=== PATIENT | female | born 1955 | race Caucasian/White ===

== ENCOUNTER 2024-02-25 23:22 | Inpatient (IN) | payer OTHER, MEDICAID ==
[~2024-02-25] VITALS: Ht 160 cm; Wt 97.5 kg
[2024-02-25 23:29] VITALS: BP_SYST 117; PULSE 99; RESP 24; TEMP 96.8; O2SAT 95
[2024-02-26] VITALS (8 sets, daily range): BP systolic 91–120; PULSE 77–83; RESP 16–22; TEMP 97–98.4; O2SAT 95–98
[2024-02-26 00:43] LABS: CALCIUM 9.2 mg/dL (8.4-11.0); CREATININE 0.91 mg/dL (0.55-1.30); HEMATOCRIT 40.1 % (36-48); HEMOGLOBIN 13.5 g/dL (12.0-16.0); MEAN CORPUSCULAR HEMOGLOBIN 31 pg (27-31); MEAN CORPUSCULAR HGB CONC 34 % (32-36); MEAN CORPUSCULAR VOLUME 93 fL (79.0-98.0); PLATELET COUNT (AUTO) 236 K/uL (130-430); POTASSIUM 3.6 mmol/L (3.5-5.1); RED BLOOD CELL COUNT(AUTO) 4.32 MIL/uL (4.2-6.2); RED CELL DISTRIBUTION WIDTH 15.9 % (9.0-15.0); WHITE BLOOD COUNT (AUTO) 27.6 K/uL (4.8-10.8)
[2024-02-26] MEDS: fentaNYL CITRATE/PF 100 MCG/2 ML AMP IVP ONE (01:57)
[2024-02-26] MEDS ORDERED: PIPERACILLIN/TAZOBACTAM 3.375 GM/VIAL (ZOSYN) IV ONE (02:05)
[2024-02-26] MEDS: PIPERACILLIN/TAZO 3.375 GM in NS 50 ML IV ONE ×2 (02:11→15:42)
[2024-02-26] MEDS ORDERED: HYDR-3921 PO (02:14)
[2024-02-26] MEDS ORDERED: ALBU2.5V7 INH (02:14)
[2024-02-26] MEDS ORDERED: OMEP20CA15 PO (02:14)
[2024-02-26] MEDS ORDERED: ONDA-8 TL (02:14)
[2024-02-26] MEDS ORDERED: ROFL500T PO (02:14)
[2024-02-26] MEDS ORDERED: ATOR-449 PO (02:14)
[2024-02-26] MEDS ORDERED: PRED5TAB PO (02:14)
[2024-02-26] MEDS ORDERED: POTA8TAB66 PO (02:14)
[2024-02-26] MEDS ORDERED: LOSA-413 PO (02:14)
[2024-02-26] MEDS: D5/0.45 NS 1,000 ML IV SCH (02:38)
[2024-02-26 02:52] LABS: BILIRUBIN,URINE NEGATIVE (NEGATIVE); BLOOD, URINE NEGATIVE (NEGATIVE); CLARITY/URINE CLEAR (CLEAR); COLOR,URINE YELLOW (YELLOW); GLUCOSE,URINE NEGATIVE (NEGATIVE); KETONES,URINE NEGATIVE (NEGATIVE); LEUKOCYTE ESTERASE ,URINE NEGATIVE (NEGATIVE); NITRITE, URINE POSITIVE (NEGATIVE); PROTEIN URINE NEGATIVE (NEGATIVE); UROBILINOGEN,URINE 0.2 (0.2-1.0)
[2024-02-26] MEDS: HYDROmorphone 1 MG/ML INJ. CARTRIDGE IM PRN (02:57)
[2024-02-26] MEDS: ONDANSETRON HCL 4 MG/2 ML VIAL IVP PRN (02:58)
[2024-02-26] MEDS: IPRATROPIUM/ALBUTEROL SULFATE 3 ML AMPUL.NEB (DUONEB) INH ONE (03:07)
[2024-02-26 03:08] LABS: BASOPHILS % (AUTO) 0.1 % (0.0-2.0); LYMPHOCYTES % (AUTO) 3.3 % (20.5-51.5); MONOCYTES % (AUTO) 5.7 % (1.7-9.3); NEUTROPHILS # (AUTO) 25.1 K/uL (1.8-7.7)
[2024-02-26 03:09] LABS: LYMPHOCYTES # (AUTO) 0.9 K/uL (1.0-5.5); MONOCYTES # (AUTO) 1.6 K/uL (0.0-1.0)
[2024-02-26 03:10] LABS: BAND % (MANUAL) 1 % (0-6); LYMPHOCYTES % (MANUAL) 3 % (20-46); MONOCYTES % (MANUAL) 6 % (0-11)
[2024-02-26 03:12] LABS: BASOPHILS % (MANUAL) 2 % (0-2)
[2024-02-26 03:17] LABS: BACTERIA,URINE MANY /HPF (None Seen); RBC,URINE 0-3 /HPF (0-3); WBC,URINE 0-3 /HPF (0-3)
[2024-02-26 03:18] LABS: MUCUS,URINE 2+ /LPF (None Seen)
[2024-02-26] MEDS ORDERED: PIPERACILLIN/TAZOBACTAM 2.25 GM VIAL IV ONE (05:25)
[2024-02-26] MEDS: PIPERACILLIN/TAZOBACTAM 2.25 GM in NS 50 ML IV SCH (06:19)
[2024-02-26] MEDS ORDERED: VANCOMYCIN HCL 1,000 MG in NS 250 ML IV SCH (09:00)
[2024-02-26] MEDS ORDERED: ONDANSETRON 4 MG ODT TAB TL PRN (11:00)
[2024-02-26] MEDS: VANCOMYCIN HCL 1,000 MG in NS 250 ML IV SCH (11:10)
[2024-02-26] MEDS ORDERED: *TPN PER PHARMACY XX PRN (11:15)
[2024-02-26] MEDS ORDERED: DEXTROSE 50% JECT 50 ML DISP.SYRIN IVP PRN (11:15)
[2024-02-26 11:38] LABS: PHOSPHORUS 3.4 mg/dL (2.7-4.5)
[2024-02-26] MEDS: HYDROmorphone 1 MG/ML INJ. CARTRIDGE IVP PRN (12:01)
[2024-02-26] MEDS ORDERED: NACL 0.9% 1,000 ML IV SCH (12:15)
[2024-02-26] MEDS: ALBUTEROL SULFATE 0.083% 2.5 MG/3 ML VIAL.NEB INH PRN (13:35)
[2024-02-26] MEDS ORDERED: ALBUTEROL SULFATE 0.083% 2.5 MG/3 ML VIAL.NEB INH ONE (14:00)
[2024-02-26] MEDS: PANTOPRAZOLE SODIUM 40 MG TAB PO ONE (14:09)
[2024-02-26] MEDS: HYDROCORTISONE SOD SUCC 100 MG/2 ML VIAL IVP ONE (14:10)
[2024-02-26] MEDS: NACL 0.9% 1,000 ML IV ONE (14:14)
[2024-02-26] MEDS ORDERED: PIPERACILLIN/TAZOBACTAM 2.25 GM in NS 50 ML IV ONE (15:00)
[2024-02-26 16:52] LABS: PROTHROMBIN TIME 10.7 SECS (9.5-12.5)
[2024-02-26] MEDS: ALBUTEROL SULFATE 0.083% 2.5 MG/3 ML VIAL.NEB INH SCH (19:30)
[2024-02-26] MEDS: SODIUM CHLORIDE IV SCH (21:00)
[2024-02-26] MEDS: POTASSIUM CHLORIDE IV SCH (21:00)
[2024-02-26] MEDS: TPN PERIPHERAL IV SCH (21:00)
[2024-02-26] MEDS: [UNRECOGNIZED DRUG - OTHER] IV SCH (21:00)
[2024-02-26] MEDS: FAT EMULSIONS 250 ML IV SCH (21:00)
[2024-02-26] MEDS: HYDROCORTISONE SOD SUCC 100 MG/2 ML VIAL IVP SCH (21:24)
[2024-02-26] MEDS ORDERED: LINEZOLID 300 ML IV ONE (21:31)
[2024-02-26] MEDS ORDERED: FLUCONAZOLE 200 mg/ NS 100 ML IV ONE (21:32)
[2024-02-26] MEDS: FLUCONAZOLE 200 mg/ NS 100 ML IV SCH (21:43)
[2024-02-26] MEDS: LINEZOLID 300 ML IV SCH (21:44)
[2024-02-26] MEDS ORDERED: ALBUTEROL SULFATE 0.083% 2.5 MG/3 ML VIAL.NEB INH SCH (22:00)
[2024-02-26] MEDS ORDERED: PIPERACILLIN/TAZOBACTAM 2.25 GM in NS 50 ML IV SCH (22:00)
[2024-02-26] MEDS: PIPERACILLIN/TAZO 3.375 GM in NS 50 ML IV SCH (22:47)
[2024-02-27] VITALS (10 sets, daily range): BP systolic 132–155; PULSE 75–86; RESP 16–20; TEMP 96.1–99.6; O2SAT 91–97
[2024-02-27 06:12] LABS: BASOPHILS % (AUTO) 0.2 % (0.0-2.0); HEMATOCRIT 35.7 % (36-48); HEMOGLOBIN 11.7 g/dL (12.0-16.0); LYMPHOCYTES # (AUTO) 0.9 K/uL (1.0-5.5); LYMPHOCYTES % (AUTO) 3.8 % (20.5-51.5); MEAN CORPUSCULAR HEMOGLOBIN 31 pg (27-31); MEAN CORPUSCULAR HGB CONC 33 % (32-36); MEAN CORPUSCULAR VOLUME 93 fL (79.0-98.0); MONOCYTES # (AUTO) 1.1 K/uL (0.0-1.0); MONOCYTES % (AUTO) 4.6 % (1.7-9.3); PLATELET COUNT (AUTO) 211 K/uL (130-430); RED BLOOD CELL COUNT(AUTO) 3.83 MIL/uL (4.2-6.2); RED CELL DISTRIBUTION WIDTH 15.4 % (9.0-15.0); WHITE BLOOD COUNT (AUTO) 24.1 K/uL (4.8-10.8)
[2024-02-27 06:22] LABS: ALBUMIN 2.5 g/dL (3.4-4.8); CALCIUM 8.9 mg/dL (8.4-11.0); CREATININE 0.76 mg/dL (0.55-1.30); PHOSPHORUS 3.3 mg/dL (2.7-4.5); POTASSIUM 3.9 mmol/L (3.5-5.1); TOTAL BILIRUBIN 0.7 mg/dL (0.0-1.0); TOTAL PROTEIN, SERUM 6.1 g/dL (6.4-8.3)
[2024-02-27 07:33] LABS: NEUTROPHILS % (AUTO) 91.4 % (40.0-70.0)
[2024-02-27] MEDS ORDERED: ATORVASTATIN 10 MG TABLET PO SCH (09:00)
[2024-02-27] MEDS ORDERED: POTASSIUM CHLORIDE 8 MEQ TABLET.ER PO SCH (09:00)
[2024-02-27] MEDS ORDERED: LOSARTAN POTASSIUM 50 MG TABLET (COZAAR) PO SCH (09:00)
[2024-02-27] MEDS ORDERED: PANTOPRAZOLE SODIUM 40 MG TAB PO SCH (09:00)
[2024-02-27] MEDS: PANTOPRAZOLE SODIUM 40 MG/VIAL (PROTONIX) IVP SCH (11:12)
[2024-02-27] MEDS: ONDANSETRON HCL 4 MG/2 ML VIAL IVP PRN (15:22)
[2024-02-27] MEDS: FAT EMULSIONS 250 ML IV SCH (20:41)
[2024-02-27] MEDS: SODIUM CHLORIDE IV SCH (20:46)
[2024-02-27] MEDS: TPN CENTRAL IV SCH (20:46)
[2024-02-27] MEDS: POTASSIUM CHLORIDE IV SCH (20:46)
[2024-02-27] MEDS: [UNRECOGNIZED DRUG - OTHER] IV SCH (20:46)
[2024-02-27] MEDS: K PHOS IV SCH (20:46)
[2024-02-28] VITALS (7 sets, daily range): BP systolic 128–160; PULSE 61–78; RESP 16–28; TEMP 95.8–97.7; O2SAT 93–96
[2024-02-28] MEDS: MAG-AL HYDROX/SIMETH 30 ML UDC PO ONE (00:50)
[2024-02-28 06:40] LABS: ALBUMIN 2.3 g/dL (3.4-4.8); CREATININE 0.79 mg/dL (0.55-1.30); POTASSIUM 3.6 mmol/L (3.5-5.1); TOTAL BILIRUBIN 0.4 mg/dL (0.0-1.0); TOTAL PROTEIN, SERUM 6.1 g/dL (6.4-8.3)
[2024-02-28] MEDS: POTASSIUM CHLORIDE IV SCH (22:09)
[2024-02-28] MEDS: [UNRECOGNIZED DRUG - OTHER] IV SCH (22:09)
[2024-02-28] MEDS: SODIUM CHLORIDE IV SCH (22:09)
[2024-02-28] MEDS: TPN CENTRAL IV SCH (22:09)
[2024-02-29] VITALS (8 sets, daily range): BP systolic 146–158; PULSE 69–80; RESP 18–28; TEMP 96.9–98.1; O2SAT 92–98
[2024-02-29 05:15] LABS: BASOPHILS % (AUTO) 0.1 % (0.0-2.0); EOSINOPHILS # (AUTO) 0.1 K/uL (0.0-0.4); EOSINOPHILS % (AUTO) 0.4 % (0.0-4.0); HEMATOCRIT 35.3 % (36-48); HEMOGLOBIN 11.5 g/dL (12.0-16.0); LYMPHOCYTES # (AUTO) 0.6 K/uL (1.0-5.5); LYMPHOCYTES % (AUTO) 3.2 % (20.5-51.5); MEAN CORPUSCULAR HEMOGLOBIN 30 pg (27-31); MEAN CORPUSCULAR HGB CONC 32 % (32-36); MEAN CORPUSCULAR VOLUME 94 fL (79.0-98.0); MONOCYTES # (AUTO) 0.9 K/uL (0.0-1.0); MONOCYTES % (AUTO) 4.7 % (1.7-9.3); NEUTROPHILS % (AUTO) 91.6 % (40.0-70.0); PLATELET COUNT (AUTO) 239 K/uL (130-430); RED BLOOD CELL COUNT(AUTO) 3.77 MIL/uL (4.2-6.2); RED CELL DISTRIBUTION WIDTH 15.2 % (9.0-15.0); WHITE BLOOD COUNT (AUTO) 18.6 K/uL (4.8-10.8)
[2024-02-29 05:24] LABS: ALBUMIN 2.2 g/dL (3.4-4.8); CREATININE 0.73 mg/dL (0.55-1.30); PHOSPHORUS 2.9 mg/dL (2.7-4.5); POTASSIUM 3.7 mmol/L (3.5-5.1); TOTAL BILIRUBIN 0.3 mg/dL (0.0-1.0)
[2024-02-29] MEDS: INSULIN REGULAR, HUMAN 100 UNITS/ML, 3 ML VIAL (humuLIN R) SUBCUT PRN (10:25)
[2024-02-29] MEDS: POTASSIUM CHLORIDE IV SCH (20:45)
[2024-02-29] MEDS: [UNRECOGNIZED DRUG - OTHER] IV SCH (20:45)
[2024-02-29] MEDS: TPN CENTRAL IV SCH (20:45)
[2024-02-29] MEDS: SODIUM CHLORIDE IV SCH (20:45)
[2024-03-01] VITALS (9 sets, daily range): BP systolic 124–150; PULSE 72–81; RESP 16–20; TEMP 97.4–98.3; O2SAT 90–98
[2024-03-01 06:29] LABS: BASOPHILS % (AUTO) 0.1 % (0.0-2.0); EOSINOPHILS % (AUTO) 0.1 % (0.0-4.0); HEMATOCRIT 35.7 % (36-48); HEMOGLOBIN 11.7 g/dL (12.0-16.0); LYMPHOCYTES # (AUTO) 0.9 K/uL (1.0-5.5); LYMPHOCYTES % (AUTO) 6.6 % (20.5-51.5); MEAN CORPUSCULAR HEMOGLOBIN 31 pg (27-31); MEAN CORPUSCULAR HGB CONC 33 % (32-36); MEAN CORPUSCULAR VOLUME 93 fL (79.0-98.0); MONOCYTES # (AUTO) 0.8 K/uL (0.0-1.0); MONOCYTES % (AUTO) 5.6 % (1.7-9.3); NEUTROPHILS # (AUTO) 11.7 K/uL (1.8-7.7); NEUTROPHILS % (AUTO) 87.6 % (40.0-70.0); PLATELET COUNT (AUTO) 245 K/uL (130-430); RED BLOOD CELL COUNT(AUTO) 3.84 MIL/uL (4.2-6.2); RED CELL DISTRIBUTION WIDTH 15.3 % (9.0-15.0); WHITE BLOOD COUNT (AUTO) 13.4 K/uL (4.8-10.8)
[2024-03-01 06:53] LABS: ALBUMIN 2.4 g/dL (3.4-4.8); CREATININE 0.77 mg/dL (0.55-1.30); PHOSPHORUS 3.5 mg/dL (2.7-4.5); POTASSIUM 3.9 mmol/L (3.5-5.1); TOTAL BILIRUBIN 0.4 mg/dL (0.0-1.0); TOTAL PROTEIN, SERUM 6.2 g/dL (6.4-8.3)
[2024-03-01] MEDS: SODIUM CHLORIDE IV SCH (20:50)
[2024-03-01] MEDS: [UNRECOGNIZED DRUG - OTHER] IV SCH (20:50)
[2024-03-01] MEDS: POTASSIUM CHLORIDE IV SCH (20:50)
[2024-03-01] MEDS: TPN CENTRAL IV SCH (20:50)
[2024-03-01] MEDS: NYSTATIN 15 GM TOPICAL POWDER TP SCH (21:00)
[2024-03-02] VITALS (7 sets, daily range): BP systolic 119–127; PULSE 68–89; RESP 15–20; TEMP 96.7–97.9; O2SAT 92–95
[2024-03-02 07:54] LABS: BASOPHILS % (AUTO) 0.2 % (0.0-2.0); EOSINOPHILS % (AUTO) 0.2 % (0.0-4.0); HEMATOCRIT 35.1 % (36-48); HEMOGLOBIN 11.4 g/dL (12.0-16.0); LYMPHOCYTES % (AUTO) 6.3 % (20.5-51.5); MEAN CORPUSCULAR HEMOGLOBIN 30 pg (27-31); MEAN CORPUSCULAR HGB CONC 33 % (32-36); MEAN CORPUSCULAR VOLUME 93 fL (79.0-98.0); MONOCYTES % (AUTO) 6.8 % (1.7-9.3); NEUTROPHILS % (AUTO) 86.5 % (40.0-70.0); PLATELET COUNT (AUTO) 232 K/uL (130-430); RED BLOOD CELL COUNT(AUTO) 3.77 MIL/uL (4.2-6.2); RED CELL DISTRIBUTION WIDTH 15.2 % (9.0-15.0)
[2024-03-02 08:17] LABS: ALBUMIN 2.4 g/dL (3.4-4.8); CALCIUM 8.7 mg/dL (8.4-11.0); CREATININE 0.66 mg/dL (0.55-1.30); PHOSPHORUS 4.1 mg/dL (2.7-4.5); POTASSIUM 3.7 mmol/L (3.5-5.1); TOTAL BILIRUBIN 0.4 mg/dL (0.0-1.0); TOTAL PROTEIN, SERUM 5.9 g/dL (6.4-8.3)
[2024-03-02] MEDS: HYDROcodone/ACETAMIN 7.5-325 MG TAB PO PRN (13:48)
[2024-03-02] MEDS: POTASSIUM CHLORIDE IV SCH (20:48)
[2024-03-02] MEDS: SODIUM CHLORIDE IV SCH (20:48)
[2024-03-02] MEDS: [UNRECOGNIZED DRUG - OTHER] IV SCH (20:48)
[2024-03-02] MEDS: TPN CENTRAL IV SCH (20:48)
[2024-03-03] VITALS (11 sets, daily range): BP systolic 120–135; PULSE 70–81; RESP 16–20; TEMP 97.2–99; O2SAT 92–96
[2024-03-03 07:18] LABS: HEMATOCRIT 35.5 % (36-48); HEMOGLOBIN 11.4 g/dL (12.0-16.0); MEAN CORPUSCULAR HEMOGLOBIN 30 pg (27-31); MEAN CORPUSCULAR HGB CONC 32 % (32-36); MEAN CORPUSCULAR VOLUME 94 fL (79.0-98.0); PLATELET COUNT (AUTO) 260 K/uL (130-430); RED BLOOD CELL COUNT(AUTO) 3.77 MIL/uL (4.2-6.2); RED CELL DISTRIBUTION WIDTH 15.9 % (9.0-15.0); WHITE BLOOD COUNT (AUTO) 23.2 K/uL (4.8-10.8)
[2024-03-03 07:50] LABS: ALBUMIN 2.3 g/dL (3.4-4.8); CALCIUM 8.9 mg/dL (8.4-11.0); CREATININE 0.65 mg/dL (0.55-1.30); PHOSPHORUS 3.4 mg/dL (2.7-4.5); POTASSIUM 3.9 mmol/L (3.5-5.1); TOTAL BILIRUBIN 0.4 mg/dL (0.0-1.0); TOTAL PROTEIN, SERUM 5.9 g/dL (6.4-8.3)
[2024-03-03 10:35] LABS: EOSINOPHILS % (MANUAL) 0 % (0-7); LYMPHOCYTES % (MANUAL) 10 % (20-46); MONOCYTES % (MANUAL) 10 % (0-11)
[2024-03-03 10:36] LABS: ANISOCYTOSIS 1+; BASOPHILS % (MANUAL) 0 % (0-2); PLATELET ESTIMATE ADEQUATE (ADEQUATE)
[2024-03-03] MEDS: SODIUM CHLORIDE IV SCH (20:22)
[2024-03-03] MEDS: [UNRECOGNIZED DRUG - OTHER] IV SCH (20:22)
[2024-03-03] MEDS: TPN PERIPHERAL IV SCH (20:22)
[2024-03-03] MEDS: POTASSIUM CHLORIDE IV SCH (20:22)
[2024-03-04] VITALS (9 sets, daily range): BP systolic 120–132; PULSE 79–106; RESP 16–22; TEMP 97–98; O2SAT 90–96
[2024-03-04 09:08] LABS: BASOPHILS % (AUTO) 0.1 % (0.0-2.0); EOSINOPHILS % (AUTO) 0.1 % (0.0-4.0); HEMATOCRIT 37.2 % (36-48); LYMPHOCYTES # (AUTO) 1.3 K/uL (1.0-5.5); MEAN CORPUSCULAR HEMOGLOBIN 30 pg (27-31); MEAN CORPUSCULAR HGB CONC 32 % (32-36); MEAN CORPUSCULAR VOLUME 94 fL (79.0-98.0); MONOCYTES # (AUTO) 1.1 K/uL (0.0-1.0); MONOCYTES % (AUTO) 5.4 % (1.7-9.3); NEUTROPHILS # (AUTO) 18.4 K/uL (1.8-7.7); NEUTROPHILS % (AUTO) 88.4 % (40.0-70.0); PLATELET COUNT (AUTO) 246 K/uL (130-430); RED BLOOD CELL COUNT(AUTO) 3.96 MIL/uL (4.2-6.2); RED CELL DISTRIBUTION WIDTH 15.6 % (9.0-15.0); WHITE BLOOD COUNT (AUTO) 20.9 K/uL (4.8-10.8)
[2024-03-04 09:16] LABS: ALBUMIN 2.4 g/dL (3.4-4.8); CREATININE 0.68 mg/dL (0.55-1.30); PHOSPHORUS 2.9 mg/dL (2.7-4.5); POTASSIUM 3.8 mmol/L (3.5-5.1); TOTAL BILIRUBIN 0.5 mg/dL (0.0-1.0); TOTAL PROTEIN, SERUM 6.1 g/dL (6.4-8.3)
[2024-03-04] MEDS: ALBUTEROL SULFATE 0.083% 2.5 MG/3 ML VIAL.NEB INH ONE (12:27)
[2024-03-04] MEDS: MEROPENEM 1 GM in NS 100 ML IV SCH (14:23)
[2024-03-04 18:31] LABS: BASOPHILS # (AUTO) 0.1 K/uL (0.0-0.2); BASOPHILS % (AUTO) 0.4 % (0.0-2.0); EOSINOPHILS # (AUTO) 0.1 K/uL (0.0-0.4); EOSINOPHILS % (AUTO) 0.2 % (0.0-4.0); HEMATOCRIT 36.8 % (36-48); HEMOGLOBIN 12.3 g/dL (12.0-16.0); LYMPHOCYTES # (AUTO) 1.5 K/uL (1.0-5.5); LYMPHOCYTES % (AUTO) 6.4 % (20.5-51.5); MEAN CORPUSCULAR HEMOGLOBIN 31 pg (27-31); MEAN CORPUSCULAR HGB CONC 33 % (32-36); MEAN CORPUSCULAR VOLUME 92 fL (79.0-98.0); MONOCYTES # (AUTO) 1.5 K/uL (0.0-1.0); MONOCYTES % (AUTO) 6.3 % (1.7-9.3); NEUTROPHILS # (AUTO) 20.8 K/uL (1.8-7.7); NEUTROPHILS % (AUTO) 86.7 % (40.0-70.0); PLATELET COUNT (AUTO) 252 K/uL (130-430); RED BLOOD CELL COUNT(AUTO) 3.99 MIL/uL (4.2-6.2); RED CELL DISTRIBUTION WIDTH 15.7 % (9.0-15.0)
[2024-03-04] MEDS ORDERED: FLUCONAZOLE 200 mg/ NS 100 ML IV SCH (20:00)
[2024-03-04] MEDS: FLUCONAZOLE IN NACL,ISO-OSM 200 ML IV SCH (21:51)
[2024-03-04] MEDS: SODIUM CHLORIDE IV SCH (21:52)
[2024-03-04] MEDS: POTASSIUM CHLORIDE IV SCH (21:52)
[2024-03-04] MEDS: [UNRECOGNIZED DRUG - OTHER] IV SCH (21:52)
[2024-03-04] MEDS: TPN PERIPHERAL IV SCH (21:52)
[2024-03-05] VITALS (10 sets, daily range): BP systolic 115–132; PULSE 78–105; RESP 16–20; TEMP 97.4–98.2; O2SAT 92–98
[2024-03-05 06:18] LABS: BASOPHILS % (AUTO) 0.2 % (0.0-2.0); EOSINOPHILS # (AUTO) 0.1 K/uL (0.0-0.4); EOSINOPHILS % (AUTO) 0.6 % (0.0-4.0); HEMOGLOBIN 11.9 g/dL (12.0-16.0); LYMPHOCYTES # (AUTO) 1.3 K/uL (1.0-5.5); MEAN CORPUSCULAR HEMOGLOBIN 31 pg (27-31); MEAN CORPUSCULAR HGB CONC 33 % (32-36); MEAN CORPUSCULAR VOLUME 92 fL (79.0-98.0); MONOCYTES # (AUTO) 1.5 K/uL (0.0-1.0); MONOCYTES % (AUTO) 6.8 % (1.7-9.3); NEUTROPHILS # (AUTO) 18.9 K/uL (1.8-7.7); PLATELET COUNT (AUTO) 257 K/uL (130-430); RED BLOOD CELL COUNT(AUTO) 3.89 MIL/uL (4.2-6.2); RED CELL DISTRIBUTION WIDTH 15.4 % (9.0-15.0); WHITE BLOOD COUNT (AUTO) 21.9 K/uL (4.8-10.8)
[2024-03-05 06:55] LABS: ALBUMIN 2.2 g/dL (3.4-4.8); CALCIUM 8.7 mg/dL (8.4-11.0); CREATININE 0.67 mg/dL (0.55-1.30); PHOSPHORUS 3.2 mg/dL (2.7-4.5); TOTAL BILIRUBIN 0.4 mg/dL (0.0-1.0); TOTAL PROTEIN, SERUM 5.9 g/dL (6.4-8.3)
[2024-03-05 07:11] LABS: NEUTROPHILS % (AUTO) 86.4 % (40.0-70.0)
[2024-03-05] MEDS ORDERED: PANTOPRAZOLE SODIUM 40 MG/VIAL (PROTONIX) IVP SCH (14:00)
[2024-03-05] MEDS: PANTOPRAZOLE SODIUM 40 MG/VIAL (PROTONIX) IVP SCH (17:00)
[2024-03-05] MEDS ORDERED: POTASSIUM CHLORIDE IV SCH (21:00)
[2024-03-05] MEDS ORDERED: SODIUM CHLORIDE IV SCH (21:00)
[2024-03-05] MEDS ORDERED: [UNRECOGNIZED DRUG - OTHER] IV SCH (21:00)
[2024-03-05] MEDS ORDERED: TPN PERIPHERAL IV SCH (21:00)
[2024-03-05] MEDS: SODIUM CHLORIDE IV SCH (21:14)
[2024-03-05] MEDS: TPN CENTRAL IV SCH (21:14)
[2024-03-05] MEDS: [UNRECOGNIZED DRUG - OTHER] IV SCH (21:14)
[2024-03-05] MEDS: POTASSIUM CHLORIDE IV SCH (21:14)
[2024-03-06] VITALS (11 sets, daily range): BP systolic 111–129; PULSE 72–88; RESP 16–19; TEMP 96.3–98.3; O2SAT 93–99
[2024-03-06 06:43] LABS: BASOPHILS % (AUTO) 0.2 % (0.0-2.0); EOSINOPHILS # (AUTO) 0.3 K/uL (0.0-0.4); EOSINOPHILS % (AUTO) 1.3 % (0.0-4.0); HEMATOCRIT 34.9 % (36-48); HEMOGLOBIN 11.2 g/dL (12.0-16.0); LYMPHOCYTES # (AUTO) 1.1 K/uL (1.0-5.5); LYMPHOCYTES % (AUTO) 5.4 % (20.5-51.5); MEAN CORPUSCULAR HEMOGLOBIN 30 pg (27-31); MEAN CORPUSCULAR HGB CONC 32 % (32-36); MEAN CORPUSCULAR VOLUME 93 fL (79.0-98.0); MONOCYTES % (AUTO) 4.9 % (1.7-9.3); NEUTROPHILS # (AUTO) 17.5 K/uL (1.8-7.7); NEUTROPHILS % (AUTO) 88.2 % (40.0-70.0); PLATELET COUNT (AUTO) 264 K/uL (130-430); RED BLOOD CELL COUNT(AUTO) 3.76 MIL/uL (4.2-6.2); RED CELL DISTRIBUTION WIDTH 15.6 % (9.0-15.0); WHITE BLOOD COUNT (AUTO) 19.9 K/uL (4.8-10.8)
[2024-03-06 07:01] LABS: ALBUMIN 2.1 g/dL (3.4-4.8); CALCIUM 8.8 mg/dL (8.4-11.0); CREATININE 0.74 mg/dL (0.55-1.30); PHOSPHORUS 2.9 mg/dL (2.7-4.5); POTASSIUM 4.3 mmol/L (3.5-5.1); TOTAL BILIRUBIN 0.2 mg/dL (0.0-1.0)
[2024-03-06] MEDS: POTASSIUM CHLORIDE IV SCH (21:08)
[2024-03-06] MEDS: TPN CENTRAL IV SCH (21:08)
[2024-03-06] MEDS: SODIUM CHLORIDE IV SCH (21:08)
[2024-03-06] MEDS: [UNRECOGNIZED DRUG - OTHER] IV SCH (21:08)
[2024-03-06] MEDS ORDERED: FLUCONAZOLE 200 mg/ NS 100 ML IV ONE (22:11)
[2024-03-07] VITALS (11 sets, daily range): BP systolic 125–173; PULSE 62–81; RESP 17–20; TEMP 97.3–98.4; O2SAT 91–100
[2024-03-07 06:51] LABS: BASOPHILS % (AUTO) 0.3 % (0.0-2.0); EOSINOPHILS # (AUTO) 0.2 K/uL (0.0-0.4); EOSINOPHILS % (AUTO) 1.1 % (0.0-4.0); HEMATOCRIT 34.9 % (36-48); HEMOGLOBIN 11.2 g/dL (12.0-16.0); LYMPHOCYTES # (AUTO) 1.1 K/uL (1.0-5.5); LYMPHOCYTES % (AUTO) 6.5 % (20.5-51.5); MEAN CORPUSCULAR HEMOGLOBIN 30 pg (27-31); MEAN CORPUSCULAR HGB CONC 32 % (32-36); MEAN CORPUSCULAR VOLUME 93 fL (79.0-98.0); MONOCYTES # (AUTO) 0.8 K/uL (0.0-1.0); MONOCYTES % (AUTO) 4.4 % (1.7-9.3); NEUTROPHILS # (AUTO) 15.5 K/uL (1.8-7.7); NEUTROPHILS % (AUTO) 87.7 % (40.0-70.0); PLATELET COUNT (AUTO) 292 K/uL (130-430); RED BLOOD CELL COUNT(AUTO) 3.76 MIL/uL (4.2-6.2); RED CELL DISTRIBUTION WIDTH 15.4 % (9.0-15.0); WHITE BLOOD COUNT (AUTO) 17.6 K/uL (4.8-10.8)
[2024-03-07 07:53] LABS: ALBUMIN 2.1 g/dL (3.4-4.8); CALCIUM 8.9 mg/dL (8.4-11.0); CREATININE 0.61 mg/dL (0.55-1.30); PHOSPHORUS 3.2 mg/dL (2.7-4.5); POTASSIUM 4.3 mmol/L (3.5-5.1); TOTAL BILIRUBIN 0.2 mg/dL (0.0-1.0); TOTAL PROTEIN, SERUM 5.9 g/dL (6.4-8.3)
[2024-03-07 12:23] LABS: BASOPHILS # (AUTO) 0.1 K/uL (0.0-0.2); BASOPHILS % (AUTO) 0.3 % (0.0-2.0); EOSINOPHILS # (AUTO) 0.2 K/uL (0.0-0.4); EOSINOPHILS % (AUTO) 0.8 % (0.0-4.0); HEMATOCRIT 35.6 % (36-48); HEMOGLOBIN 11.6 g/dL (12.0-16.0); LYMPHOCYTES # (AUTO) 0.9 K/uL (1.0-5.5); LYMPHOCYTES % (AUTO) 4.6 % (20.5-51.5); MEAN CORPUSCULAR HEMOGLOBIN 31 pg (27-31); MEAN CORPUSCULAR HGB CONC 33 % (32-36); MEAN CORPUSCULAR VOLUME 94 fL (79.0-98.0); MONOCYTES # (AUTO) 0.7 K/uL (0.0-1.0); MONOCYTES % (AUTO) 3.6 % (1.7-9.3); NEUTROPHILS # (AUTO) 17.8 K/uL (1.8-7.7); NEUTROPHILS % (AUTO) 90.7 % (40.0-70.0); PLATELET COUNT (AUTO) 302 K/uL (130-430); RED BLOOD CELL COUNT(AUTO) 3.78 MIL/uL (4.2-6.2); RED CELL DISTRIBUTION WIDTH 15.5 % (9.0-15.0); WHITE BLOOD COUNT (AUTO) 19.7 K/uL (4.8-10.8)
[2024-03-07] MEDS: [UNRECOGNIZED DRUG - OTHER] IV SCH (22:14)
[2024-03-07] MEDS: SODIUM CHLORIDE IV SCH (22:14)
[2024-03-07] MEDS: POTASSIUM CHLORIDE IV SCH (22:14)
[2024-03-07] MEDS: TPN CENTRAL IV SCH (22:14)
[2024-03-08] VITALS (10 sets, daily range): BP systolic 111–140; PULSE 76–86; RESP 18; TEMP 96.9–97.8; O2SAT 93–97
[2024-03-08 07:16] LABS: BASOPHILS % (AUTO) 0.1 % (0.0-2.0); EOSINOPHILS # (AUTO) 0.2 K/uL (0.0-0.4); EOSINOPHILS % (AUTO) 1.3 % (0.0-4.0); HEMATOCRIT 34.4 % (36-48); HEMOGLOBIN 11.3 g/dL (12.0-16.0); LYMPHOCYTES # (AUTO) 1.1 K/uL (1.0-5.5); LYMPHOCYTES % (AUTO) 5.6 % (20.5-51.5); MEAN CORPUSCULAR HEMOGLOBIN 30 pg (27-31); MEAN CORPUSCULAR HGB CONC 33 % (32-36); MEAN CORPUSCULAR VOLUME 92 fL (79.0-98.0); MONOCYTES % (AUTO) 5.1 % (1.7-9.3); NEUTROPHILS # (AUTO) 16.7 K/uL (1.8-7.7); NEUTROPHILS % (AUTO) 87.9 % (40.0-70.0); PLATELET COUNT (AUTO) 302 K/uL (130-430); RED BLOOD CELL COUNT(AUTO) 3.73 MIL/uL (4.2-6.2); RED CELL DISTRIBUTION WIDTH 15.4 % (9.0-15.0); WHITE BLOOD COUNT (AUTO) 19.1 K/uL (4.8-10.8)
[2024-03-08 07:48] LABS: ALBUMIN 2.2 g/dL (3.4-4.8); CALCIUM 8.8 mg/dL (8.4-11.0); CREATININE 0.62 mg/dL (0.55-1.30); PHOSPHORUS 3.3 mg/dL (2.7-4.5); POTASSIUM 4.1 mmol/L (3.5-5.1); TOTAL BILIRUBIN 0.3 mg/dL (0.0-1.0); TOTAL PROTEIN, SERUM 5.8 g/dL (6.4-8.3)
[2024-03-08] MEDS: POTASSIUM CHLORIDE IV SCH (22:03)
[2024-03-08] MEDS: TPN CENTRAL IV SCH (22:03)
[2024-03-08] MEDS: SODIUM CHLORIDE IV SCH (22:03)
[2024-03-08] MEDS: [UNRECOGNIZED DRUG - OTHER] IV SCH (22:03)
[2024-03-09] VITALS (10 sets, daily range): BP systolic 112–129; PULSE 74–82; RESP 16–20; TEMP 96.1–98.6; O2SAT 90–98
[2024-03-09 06:43] LABS: BASOPHILS # (AUTO) 0.1 K/uL (0.0-0.2); BASOPHILS % (AUTO) 0.3 % (0.0-2.0); EOSINOPHILS # (AUTO) 0.1 K/uL (0.0-0.4); EOSINOPHILS % (AUTO) 0.5 % (0.0-4.0); HEMATOCRIT 36.3 % (36-48); HEMOGLOBIN 11.7 g/dL (12.0-16.0); LYMPHOCYTES # (AUTO) 1.1 K/uL (1.0-5.5); LYMPHOCYTES % (AUTO) 5.3 % (20.5-51.5); MEAN CORPUSCULAR HEMOGLOBIN 30 pg (27-31); MEAN CORPUSCULAR HGB CONC 32 % (32-36); MEAN CORPUSCULAR VOLUME 93 fL (79.0-98.0); MONOCYTES % (AUTO) 4.9 % (1.7-9.3); NEUTROPHILS # (AUTO) 18.4 K/uL (1.8-7.7); PLATELET COUNT (AUTO) 317 K/uL (130-430); RED BLOOD CELL COUNT(AUTO) 3.93 MIL/uL (4.2-6.2); RED CELL DISTRIBUTION WIDTH 15.7 % (9.0-15.0); WHITE BLOOD COUNT (AUTO) 20.7 K/uL (4.8-10.8)
[2024-03-09 07:44] LABS: ALBUMIN 2.3 g/dL (3.4-4.8); CALCIUM 8.9 mg/dL (8.4-11.0); CREATININE 0.7 mg/dL (0.55-1.30); PHOSPHORUS 3.2 mg/dL (2.7-4.5); POTASSIUM 4.3 mmol/L (3.5-5.1); TOTAL BILIRUBIN 0.4 mg/dL (0.0-1.0); TOTAL PROTEIN, SERUM 6.1 g/dL (6.4-8.3)
[2024-03-09 14:49] LABS: BASOPHILS % (AUTO) 0.2 % (0.0-2.0); EOSINOPHILS % (AUTO) 0.2 % (0.0-4.0); HEMATOCRIT 35.8 % (36-48); HEMOGLOBIN 11.8 g/dL (12.0-16.0); LYMPHOCYTES # (AUTO) 0.7 K/uL (1.0-5.5); LYMPHOCYTES % (AUTO) 3.5 % (20.5-51.5); MEAN CORPUSCULAR HEMOGLOBIN 31 pg (27-31); MEAN CORPUSCULAR HGB CONC 33 % (32-36); MEAN CORPUSCULAR VOLUME 92 fL (79.0-98.0); MONOCYTES # (AUTO) 0.8 K/uL (0.0-1.0); MONOCYTES % (AUTO) 3.7 % (1.7-9.3); NEUTROPHILS # (AUTO) 18.9 K/uL (1.8-7.7); NEUTROPHILS % (AUTO) 92.4 % (40.0-70.0); PLATELET COUNT (AUTO) 324 K/uL (130-430); RED BLOOD CELL COUNT(AUTO) 3.89 MIL/uL (4.2-6.2); RED CELL DISTRIBUTION WIDTH 15.5 % (9.0-15.0); WHITE BLOOD COUNT (AUTO) 20.5 K/uL (4.8-10.8)
[2024-03-09] MEDS: FLUCONAZOLE 200 mg/ NS 200 ML IV SCH (23:09)
[2024-03-10] VITALS (8 sets, daily range): BP systolic 125–128; PULSE 71–99; RESP 16–18; TEMP 96.9–97.7; O2SAT 91–99
[2024-03-10 08:04] LABS: ALBUMIN 2.2 g/dL (3.4-4.8); CALCIUM 8.6 mg/dL (8.4-11.0); CREATININE 0.55 mg/dL (0.55-1.30); TOTAL BILIRUBIN 0.3 mg/dL (0.0-1.0); TOTAL PROTEIN, SERUM 5.8 g/dL (6.4-8.3)
[2024-03-10 08:48] LABS: BASOPHILS % (AUTO) 0.3 % (0.0-2.0); EOSINOPHILS # (AUTO) 0.1 K/uL (0.0-0.4); LYMPHOCYTES # (AUTO) 0.7 K/uL (1.0-5.5); MEAN CORPUSCULAR HEMOGLOBIN 30 pg (27-31)
[2024-03-10 08:51] LABS: BASOPHILS # (AUTO) 0.1 K/uL (0.0-0.2); EOSINOPHILS % (AUTO) 0.6 % (0.0-4.0); HEMATOCRIT 34.2 % (36-48); LYMPHOCYTES % (AUTO) 4.7 % (20.5-51.5); MEAN CORPUSCULAR HGB CONC 32 % (32-36); MEAN CORPUSCULAR VOLUME 93 fL (79.0-98.0); MONOCYTES # (AUTO) 0.8 K/uL (0.0-1.0); MONOCYTES % (AUTO) 5.1 % (1.7-9.3); NEUTROPHILS # (AUTO) 14.4 K/uL (1.8-7.7); NEUTROPHILS % (AUTO) 89.3 % (40.0-70.0); PLATELET COUNT (AUTO) 297 K/uL (130-430); RED CELL DISTRIBUTION WIDTH 15.2 % (9.0-15.0); WHITE BLOOD COUNT (AUTO) 16.1 K/uL (4.8-10.8)
[2024-03-10] MEDS: BUMETANIDE 1 MG TABLET PO ONE (12:28)
[2024-03-11] VITALS (7 sets, daily range): BP systolic 115–131; PULSE 94–111; RESP 16–18; TEMP 97.3–99.6; O2SAT 91–98
[2024-03-11 07:54] LABS: ALBUMIN 2.2 g/dL (3.4-4.8); CALCIUM 8.3 mg/dL (8.4-11.0); CREATININE 0.65 mg/dL (0.55-1.30); PHOSPHORUS 2.7 mg/dL (2.7-4.5); POTASSIUM 3.8 mmol/L (3.5-5.1); TOTAL BILIRUBIN 0.4 mg/dL (0.0-1.0); TOTAL PROTEIN, SERUM 5.7 g/dL (6.4-8.3)
[2024-03-11 08:15] LABS: BASOPHILS # (AUTO) 0.1 K/uL (0.0-0.2); BASOPHILS % (AUTO) 0.8 % (0.0-2.0); EOSINOPHILS # (AUTO) 0.3 K/uL (0.0-0.4); HEMOGLOBIN 11.7 g/dL (12.0-16.0); LYMPHOCYTES # (AUTO) 1.3 K/uL (1.0-5.5); MEAN CORPUSCULAR HGB CONC 33 % (32-36)
[2024-03-11 08:18] LABS: EOSINOPHILS % (AUTO) 1.9 % (0.0-4.0); HEMATOCRIT 35.4 % (36-48); LYMPHOCYTES % (AUTO) 8.9 % (20.5-51.5); MEAN CORPUSCULAR HEMOGLOBIN 30 pg (27-31); MONOCYTES # (AUTO) 0.9 K/uL (0.0-1.0); MONOCYTES % (AUTO) 6.3 % (1.7-9.3); NEUTROPHILS # (AUTO) 11.8 K/uL (1.8-7.7); NEUTROPHILS % (AUTO) 82.1 % (40.0-70.0); PLATELET COUNT (AUTO) 255 K/uL (130-430); RED BLOOD CELL COUNT(AUTO) 3.88 MIL/uL (4.2-6.2); RED CELL DISTRIBUTION WIDTH 15.5 % (9.0-15.0); WHITE BLOOD COUNT (AUTO) 14.4 K/uL (4.8-10.8)
[2024-03-11 08:36] LABS: MEAN CORPUSCULAR VOLUME 91 fL (79.0-98.0)
[2024-03-11] MEDS: HYDROmorphone 1 MG/ML INJ. CARTRIDGE IVP PRN (11:04)
[2024-03-11] MEDS: POTASSIUM CHLORIDE IV SCH (21:26)
[2024-03-11] MEDS: TPN CENTRAL IV SCH (21:26)
[2024-03-11] MEDS: SODIUM CHLORIDE IV SCH (21:26)
[2024-03-11] MEDS: [UNRECOGNIZED DRUG - OTHER] IV SCH (21:26)
[2024-03-12] VITALS (10 sets, daily range): BP systolic 101–138; PULSE 72–112; RESP 16–18; TEMP 98.4–100.5; O2SAT 90–98
[2024-03-12 07:14] LABS: BASOPHILS # (AUTO) 0.1 K/uL (0.0-0.2); BASOPHILS % (AUTO) 0.5 % (0.0-2.0); EOSINOPHILS % (AUTO) 0.1 % (0.0-4.0); HEMATOCRIT 35.5 % (36-48); HEMOGLOBIN 11.6 g/dL (12.0-16.0); LYMPHOCYTES # (AUTO) 0.6 K/uL (1.0-5.5); LYMPHOCYTES % (AUTO) 4.9 % (20.5-51.5); MEAN CORPUSCULAR HEMOGLOBIN 30 pg (27-31); MEAN CORPUSCULAR HGB CONC 33 % (32-36); MEAN CORPUSCULAR VOLUME 91 fL (79.0-98.0); MONOCYTES # (AUTO) 0.5 K/uL (0.0-1.0); MONOCYTES % (AUTO) 3.7 % (1.7-9.3); NEUTROPHILS # (AUTO) 11.3 K/uL (1.8-7.7); NEUTROPHILS % (AUTO) 90.8 % (40.0-70.0); PLATELET COUNT (AUTO) 177 K/uL (130-430); RED BLOOD CELL COUNT(AUTO) 3.91 MIL/uL (4.2-6.2); RED CELL DISTRIBUTION WIDTH 15.2 % (9.0-15.0); WHITE BLOOD COUNT (AUTO) 12.5 K/uL (4.8-10.8)
[2024-03-12 07:58] LABS: CALCIUM 7.9 mg/dL (8.4-11.0); CREATININE 0.67 mg/dL (0.55-1.30); PHOSPHORUS 2.6 mg/dL (2.7-4.5); POTASSIUM 3.7 mmol/L (3.5-5.1); TOTAL BILIRUBIN 0.5 mg/dL (0.0-1.0); TOTAL PROTEIN, SERUM 5.4 g/dL (6.4-8.3)
[2024-03-12 11:37] LABS: BASOPHILS % (AUTO) 0.3 % (0.0-2.0); EOSINOPHILS % (AUTO) 0.2 % (0.0-4.0); HEMATOCRIT 36.2 % (36-48); HEMOGLOBIN 12.1 g/dL (12.0-16.0); LYMPHOCYTES # (AUTO) 0.6 K/uL (1.0-5.5); LYMPHOCYTES % (AUTO) 4.8 % (20.5-51.5); MEAN CORPUSCULAR HEMOGLOBIN 30 pg (27-31); MEAN CORPUSCULAR HGB CONC 34 % (32-36); MEAN CORPUSCULAR VOLUME 91 fL (79.0-98.0); MONOCYTES # (AUTO) 0.6 K/uL (0.0-1.0); MONOCYTES % (AUTO) 4.4 % (1.7-9.3); NEUTROPHILS # (AUTO) 11.7 K/uL (1.8-7.7); NEUTROPHILS % (AUTO) 90.3 % (40.0-70.0); PLATELET COUNT (AUTO) 172 K/uL (130-430); RED BLOOD CELL COUNT(AUTO) 3.99 MIL/uL (4.2-6.2); RED CELL DISTRIBUTION WIDTH 15.3 % (9.0-15.0); WHITE BLOOD COUNT (AUTO) 12.9 K/uL (4.8-10.8)
[2024-03-12] MEDS ORDERED: ADENOSINE 6MG/2ML VIAL IVP ONE (15:00)
[2024-03-12] MEDS: dilTIAZem HCL IVP 5 MG/ML VIAL IVP ONE ×2 (15:40→17:30)
[2024-03-12] MEDS: DIGOXIN 0.5 MG/2 ML AMP IVP ONE (16:51)
[2024-03-12] MEDS: NACL 0.9% 1,000 ML IV SCH (16:52)
[2024-03-12] MEDS ORDERED: SODIUM CHLORIDE IV SCH (21:00)
[2024-03-12] MEDS ORDERED: [UNRECOGNIZED DRUG - OTHER] IV SCH (21:00)
[2024-03-12] MEDS ORDERED: TPN CENTRAL IV SCH (21:00)
[2024-03-12] MEDS ORDERED: POTASSIUM CHLORIDE IV SCH (21:00)
[2024-03-13] VITALS (17 sets, daily range): BP systolic 85–123; PULSE 69–110; RESP 16–29; TEMP 95.7–98.8; O2SAT 90–99
[2024-03-13 07:45] LABS: BASOPHILS # (AUTO) 0.1 K/uL (0.0-0.2); BASOPHILS % (AUTO) 0.5 % (0.0-2.0); HEMATOCRIT 35.2 % (36-48); HEMOGLOBIN 11.8 g/dL (12.0-16.0); LYMPHOCYTES # (AUTO) 0.3 K/uL (1.0-5.5); MEAN CORPUSCULAR HEMOGLOBIN 30 pg (27-31); MEAN CORPUSCULAR HGB CONC 34 % (32-36); MEAN CORPUSCULAR VOLUME 91 fL (79.0-98.0); MONOCYTES # (AUTO) 0.4 K/uL (0.0-1.0); MONOCYTES % (AUTO) 3.3 % (1.7-9.3); NEUTROPHILS % (AUTO) 93.2 % (40.0-70.0); PLATELET COUNT (AUTO) 151 K/uL (130-430); RED BLOOD CELL COUNT(AUTO) 3.89 MIL/uL (4.2-6.2); RED CELL DISTRIBUTION WIDTH 15.1 % (9.0-15.0); WHITE BLOOD COUNT (AUTO) 10.7 K/uL (4.8-10.8)
[2024-03-13 07:51] LABS: ALBUMIN 1.9 g/dL (3.4-4.8); CALCIUM 8.3 mg/dL (8.4-11.0); CREATININE 0.83 mg/dL (0.55-1.30); PHOSPHORUS 2.3 mg/dL (2.7-4.5); POTASSIUM 3.8 mmol/L (3.5-5.1); TOTAL BILIRUBIN 0.5 mg/dL (0.0-1.0); TOTAL PROTEIN, SERUM 5.5 g/dL (6.4-8.3)
[2024-03-13] MEDS: HYDROmorphone 2 MG/ML VIAL ONE (12:33)
[2024-03-13] MEDS: MIDAZOLAM HCL 2 MG/2 ML VIAL (VERSED) ONE (12:34)
[2024-03-13] MEDS ORDERED: NEOSTIGMINE METHYLSULFATE 1 MG/ML, 10 ML VIAL ONE (13:00)
[2024-03-13] MEDS ORDERED: NS IRRIG SOLN 1000 ML IR ONE (13:00)
[2024-03-13] MEDS ORDERED: BUPIVACAINE /PF 0.25% 30 ML VIAL INJ ONE (13:00)
[2024-03-13] MEDS ORDERED: ROCURONIUM BROMIDE 10 MG/ML (ZEMURON) ONE (13:00)
[2024-03-13] MEDS ORDERED: WATER FOR IRRIGATION,STERILE 1,000 ML IRRIG.SOLN IR ONE (13:00)
[2024-03-13] MEDS ORDERED: PROPOFOL 200MG/ 20ML VIAL (DIPRIVAN) IV ONE (13:00)
[2024-03-13] MEDS ORDERED: GLYCOPYRROLATE 0.2 MG/ML VIAL ONE (13:00)
[2024-03-13] MEDS ORDERED: ceFAZolin SODIUM 2 GM VIAL ONE (13:00)
[2024-03-13] MEDS ORDERED: LR 1,000 ML IV.SOLN IV ONE (13:00)
[2024-03-13] MEDS ORDERED: ONDANSETRON HCL 4 MG/2 ML VIAL ONE (13:00)
[2024-03-13] MEDS ORDERED: METOCLOPRAMIDE HCL 10 MG/2 ML VIAL ONE (13:00)
[2024-03-13] MEDS ORDERED: SEVOFLURANE 15 MIN GAS INH ONE (13:00)
[2024-03-13] MEDS: BUPIVACAINE LIPOSOME/PF 266 MG/20 ML VIAL INFIL ONE (13:11)
[2024-03-13] MEDS ORDERED: ONDANSETRON HCL 4 MG/2 ML VIAL IVP PRN (13:45)
[2024-03-13] MEDS ORDERED: fentaNYL CITRATE/PF 100 MCG/2 ML AMP IVP PRN (13:45)
[2024-03-13] MEDS ORDERED: HYDROmorphone 1 MG/ML INJ. CARTRIDGE IVP PRN ×2 (13:45)
[2024-03-13] MEDS: LR 1,000 ML IV ONE (13:45)
[2024-03-13] MEDS ORDERED: NALOXONE HCL 0.4 MG/ML AMP (NARCAN) IVP PRN ×2 (13:45)
[2024-03-13] MEDS: LR 1,000 ML IV SCH (18:15)
[2024-03-13] MEDS ORDERED: MAGNESIUM SULFATE 50 ML IV PRN (18:15)
[2024-03-13] MEDS: ACETAMINOPHEN I.V. 1000 MG 100 ML IV ONE (19:05)
[2024-03-13 20:34] LABS: BASOPHILS # (AUTO) 0.1 K/uL (0.0-0.2); BASOPHILS % (AUTO) 0.4 % (0.0-2.0); HEMATOCRIT 35.1 % (36-48); HEMOGLOBIN 11.9 g/dL (12.0-16.0); LYMPHOCYTES # (AUTO) 0.2 K/uL (1.0-5.5); LYMPHOCYTES % (AUTO) 1.1 % (20.5-51.5); MEAN CORPUSCULAR HEMOGLOBIN 31 pg (27-31); MEAN CORPUSCULAR HGB CONC 34 % (32-36); MEAN CORPUSCULAR VOLUME 91 fL (79.0-98.0); MONOCYTES # (AUTO) 0.8 K/uL (0.0-1.0); MONOCYTES % (AUTO) 4.2 % (1.7-9.3); NEUTROPHILS # (AUTO) 18.6 K/uL (1.8-7.7); NEUTROPHILS % (AUTO) 94.3 % (40.0-70.0); PLATELET COUNT (AUTO) 130 K/uL (130-430); RED BLOOD CELL COUNT(AUTO) 3.87 MIL/uL (4.2-6.2); RED CELL DISTRIBUTION WIDTH 15.1 % (9.0-15.0); WHITE BLOOD COUNT (AUTO) 19.7 K/uL (4.8-10.8)
[2024-03-13 21:01] LABS: ALBUMIN 1.6 g/dL (3.4-4.8); CALCIUM 7.9 mg/dL (8.4-11.0); CREATININE 0.8 mg/dL (0.55-1.30); POTASSIUM 4.2 mmol/L (3.5-5.1); TOTAL PROTEIN, SERUM 4.7 g/dL (6.4-8.3)
[2024-03-13] MEDS: GABAPENTIN 300 MG CAPSULE PO SCH (22:11)
[2024-03-13] MEDS: ACETAMINOPHEN 500 MG TABLET PO SCH (22:12)
[2024-03-13] MEDS: metroNIDAZOLE 500 mg/NS 100 ML IV SCH (22:15)
[2024-03-13] MEDS: CEFEPIME 2 GM in D5W 100 ML IV SCH (22:15)
[2024-03-14] VITALS (29 sets, daily range): BP systolic 122–169; PULSE 80–111; RESP 16–32; TEMP 97.1–98.9; O2SAT 93–99
[2024-03-14] MEDS ORDERED: LR 1,000 ML IV ONE
[2024-03-14] MEDS: LR 1,000 ML IV ONE (00:37)
[2024-03-14 07:04] LABS: BASOPHILS % (AUTO) 0.2 % (0.0-2.0); HEMOGLOBIN 11.1 g/dL (12.0-16.0); LYMPHOCYTES # (AUTO) 0.5 K/uL (1.0-5.5); LYMPHOCYTES % (AUTO) 3.3 % (20.5-51.5); MEAN CORPUSCULAR HEMOGLOBIN 30 pg (27-31); MEAN CORPUSCULAR HGB CONC 34 % (32-36); MEAN CORPUSCULAR VOLUME 90 fL (79.0-98.0); MONOCYTES # (AUTO) 0.9 K/uL (0.0-1.0); MONOCYTES % (AUTO) 5.8 % (1.7-9.3); NEUTROPHILS # (AUTO) 14.4 K/uL (1.8-7.7); NEUTROPHILS % (AUTO) 90.7 % (40.0-70.0); PLATELET COUNT (AUTO) 129 K/uL (130-430); RED BLOOD CELL COUNT(AUTO) 3.66 MIL/uL (4.2-6.2); RED CELL DISTRIBUTION WIDTH 15.2 % (9.0-15.0); WHITE BLOOD COUNT (AUTO) 15.9 K/uL (4.8-10.8)
[2024-03-14 07:09] LABS: ALBUMIN 1.6 g/dL (3.4-4.8); CALCIUM 8.2 mg/dL (8.4-11.0); CREATININE 0.82 mg/dL (0.55-1.30); PHOSPHORUS 2.9 mg/dL (2.7-4.5); POTASSIUM 4.3 mmol/L (3.5-5.1); TOTAL BILIRUBIN 0.7 mg/dL (0.0-1.0); TOTAL PROTEIN, SERUM 4.7 g/dL (6.4-8.3)
[2024-03-14] MEDS ORDERED: *TPN PER PHARMACY XX PRN (09:15)
[2024-03-14] MEDS: ENOXAPARIN SODIUM 100 MG/ML SYRINGE SUBCUT SCH (09:56)
[2024-03-14] MEDS: MAGNESIUM SULFATE 50 ML IV ONE (16:04)
[2024-03-14] MEDS: ONDANSETRON HCL 4 MG/2 ML VIAL ONE (19:49)
[2024-03-14] MEDS: ONDANSETRON HCL 4 MG/2 ML VIAL IVP SCH (20:38)
[2024-03-14] MEDS: FAT EMULSIONS 250 ML IV SCH (20:46)
[2024-03-14] MEDS: TPN CENTRAL 0.0001 ML, SODIUM CHLORIDE 40 MEQ, POTASSIUM CHLORIDE 20 MEQ, K PHOS 9 MM, ... IV SCH (22:29)
[2024-03-15] VITALS (23 sets, daily range): BP systolic 106–140; PULSE 74–100; RESP 14–28; TEMP 97.1–98.2; O2SAT 87–96
[2024-03-15 06:53] LABS: ALBUMIN 1.5 g/dL (3.4-4.8); CALCIUM 8.1 mg/dL (8.4-11.0); CREATININE 0.61 mg/dL (0.55-1.30); PHOSPHORUS 2.5 mg/dL (2.7-4.5); POTASSIUM 4.3 mmol/L (3.5-5.1); TOTAL BILIRUBIN 0.4 mg/dL (0.0-1.0); TOTAL PROTEIN, SERUM 4.6 g/dL (6.4-8.3)
[2024-03-15 07:10] LABS: BASOPHILS % (AUTO) 0.2 % (0.0-2.0); HEMATOCRIT 26.1 % (36-48); HEMOGLOBIN 8.6 g/dL (12.0-16.0); LYMPHOCYTES # (AUTO) 0.7 K/uL (1.0-5.5); LYMPHOCYTES % (AUTO) 4.9 % (20.5-51.5); MEAN CORPUSCULAR HEMOGLOBIN 30 pg (27-31); MEAN CORPUSCULAR HGB CONC 33 % (32-36); MEAN CORPUSCULAR VOLUME 92 fL (79.0-98.0); MONOCYTES # (AUTO) 0.4 K/uL (0.0-1.0); MONOCYTES % (AUTO) 3.3 % (1.7-9.3); NEUTROPHILS # (AUTO) 12.3 K/uL (1.8-7.7); NEUTROPHILS % (AUTO) 91.6 % (40.0-70.0); PLATELET COUNT (AUTO) 93 K/uL (130-430); RED BLOOD CELL COUNT(AUTO) 2.86 MIL/uL (4.2-6.2); RED CELL DISTRIBUTION WIDTH 15.5 % (9.0-15.0); WHITE BLOOD COUNT (AUTO) 13.4 K/uL (4.8-10.8)
[2024-03-15] MEDS: ENOXAPARIN SODIUM 40 MG/0.4 ML SYRINGE SUBCUT SCH (09:22)
[2024-03-15] MEDS: ALBUTEROL SULFATE 0.083% 2.5 MG/3 ML VIAL.NEB INH SCH (15:00)
[2024-03-15] MEDS: LR 1,000 ML IV SCH (21:43)
[2024-03-15] MEDS: [UNRECOGNIZED DRUG - OTHER] IV SCH (21:47)
[2024-03-15] MEDS: SODIUM CHLORIDE IV SCH (21:47)
[2024-03-15] MEDS: TPN CENTRAL IV SCH (21:47)
[2024-03-15] MEDS: POTASSIUM CHLORIDE IV SCH (21:47)
[2024-03-16] VITALS (10 sets, daily range): BP systolic 105–126; PULSE 79–107; RESP 16–20; TEMP 97.2–98.1; O2SAT 93–99
[2024-03-16 07:32] LABS: BASOPHILS % (AUTO) 0.1 % (0.0-2.0); EOSINOPHILS % (AUTO) 0.1 % (0.0-4.0); HEMOGLOBIN 8.1 g/dL (12.0-16.0); LYMPHOCYTES # (AUTO) 0.7 K/uL (1.0-5.5); LYMPHOCYTES % (AUTO) 4.4 % (20.5-51.5); MEAN CORPUSCULAR HEMOGLOBIN 30 pg (27-31); MEAN CORPUSCULAR HGB CONC 32 % (32-36); MEAN CORPUSCULAR VOLUME 93 fL (79.0-98.0); MONOCYTES # (AUTO) 0.6 K/uL (0.0-1.0); MONOCYTES % (AUTO) 3.5 % (1.7-9.3); NEUTROPHILS # (AUTO) 14.5 K/uL (1.8-7.7); NEUTROPHILS % (AUTO) 91.9 % (40.0-70.0); PLATELET COUNT (AUTO) 141 K/uL (130-430); RED BLOOD CELL COUNT(AUTO) 2.69 MIL/uL (4.2-6.2); RED CELL DISTRIBUTION WIDTH 16.1 % (9.0-15.0); WHITE BLOOD COUNT (AUTO) 15.8 K/uL (4.8-10.8)
[2024-03-16 07:34] LABS: ALBUMIN 1.5 g/dL (3.4-4.8); CALCIUM 7.9 mg/dL (8.4-11.0); CREATININE 0.59 mg/dL (0.55-1.30); PHOSPHORUS 2.3 mg/dL (2.7-4.5); TOTAL BILIRUBIN 0.4 mg/dL (0.0-1.0); TOTAL PROTEIN, SERUM 4.7 g/dL (6.4-8.3)
[2024-03-16 08:04] LABS: ERYTHROCYTE SEDIMENTATION RATE 15 MM/HR (0-20)
[2024-03-16] MEDS: [UNRECOGNIZED DRUG - OTHER] IV SCH (20:40)
[2024-03-16] MEDS: MAGNESIUM SULFATE IV SCH (20:40)
[2024-03-16] MEDS: K PHOS IV SCH (20:40)
[2024-03-16] MEDS: TPN CENTRAL IV SCH (20:40)
[2024-03-16] MEDS: SODIUM CHLORIDE IV SCH (20:40)
[2024-03-17] VITALS (12 sets, daily range): BP systolic 100–119; PULSE 84–98; RESP 18–20; TEMP 96.8–98.3; O2SAT 92–97
[2024-03-17 07:41] LABS: BASOPHILS % (AUTO) 0.1 % (0.0-2.0); EOSINOPHILS % (AUTO) 0.1 % (0.0-4.0); HEMATOCRIT 25.4 % (36-48); HEMOGLOBIN 8.2 g/dL (12.0-16.0); LYMPHOCYTES # (AUTO) 0.6 K/uL (1.0-5.5); LYMPHOCYTES % (AUTO) 4.1 % (20.5-51.5); MEAN CORPUSCULAR HEMOGLOBIN 30 pg (27-31); MEAN CORPUSCULAR HGB CONC 32 % (32-36); MEAN CORPUSCULAR VOLUME 92 fL (79.0-98.0); MONOCYTES # (AUTO) 0.3 K/uL (0.0-1.0); MONOCYTES % (AUTO) 2.2 % (1.7-9.3); NEUTROPHILS # (AUTO) 14.5 K/uL (1.8-7.7); NEUTROPHILS % (AUTO) 93.5 % (40.0-70.0); PLATELET COUNT (AUTO) 117 K/uL (130-430); RED BLOOD CELL COUNT(AUTO) 2.77 MIL/uL (4.2-6.2); WHITE BLOOD COUNT (AUTO) 15.5 K/uL (4.8-10.8)
[2024-03-17 07:51] LABS: ALBUMIN 1.5 g/dL (3.4-4.8); CREATININE 0.56 mg/dL (0.55-1.30); PHOSPHORUS 2.6 mg/dL (2.7-4.5); POTASSIUM 3.7 mmol/L (3.5-5.1); TOTAL BILIRUBIN 0.4 mg/dL (0.0-1.0); TOTAL PROTEIN, SERUM 4.8 g/dL (6.4-8.3)
[2024-03-17 07:59] LABS: ERYTHROCYTE SEDIMENTATION RATE 23 MM/HR (0-20)
[2024-03-17] MEDS ORDERED: SODIUM CHLORIDE IV SCH (11:00)
[2024-03-17] MEDS ORDERED: TPN CENTRAL IV SCH (11:00)
[2024-03-17] MEDS ORDERED: MAGNESIUM SULFATE IV SCH (11:00)
[2024-03-17] MEDS ORDERED: [UNRECOGNIZED DRUG - OTHER] IV SCH (11:00)
[2024-03-17] MEDS ORDERED: K PHOS IV SCH (11:00)
[2024-03-17] MEDS: FUROSEMIDE 20 MG/2 ML VIAL IVP SCH (17:22)
[2024-03-17] MEDS: [UNRECOGNIZED DRUG - OTHER] IV SCH (20:58)
[2024-03-17] MEDS: MAGNESIUM SULFATE IV SCH (20:58)
[2024-03-17] MEDS: SODIUM CHLORIDE IV SCH (20:58)
[2024-03-17] MEDS: K PHOS IV SCH (20:58)
[2024-03-17] MEDS: TPN CENTRAL IV SCH (20:58)
[2024-03-18] VITALS (12 sets, daily range): BP systolic 101–108; PULSE 100–117; RESP 20–27; TEMP 96.9–99.3; O2SAT 76–98
[2024-03-18 08:04] LABS: BASOPHILS % (AUTO) 0.1 % (0.0-2.0); EOSINOPHILS % (AUTO) 0.2 % (0.0-4.0); HEMATOCRIT 28.3 % (36-48); HEMOGLOBIN 9.2 g/dL (12.0-16.0); MEAN CORPUSCULAR HEMOGLOBIN 30 pg (27-31); MEAN CORPUSCULAR HGB CONC 33 % (32-36); MEAN CORPUSCULAR VOLUME 92 fL (79.0-98.0); MONOCYTES # (AUTO) 0.4 K/uL (0.0-1.0); MONOCYTES % (AUTO) 2.7 % (1.7-9.3); NEUTROPHILS # (AUTO) 14.6 K/uL (1.8-7.7); PLATELET COUNT (AUTO) 125 K/uL (130-430); RED BLOOD CELL COUNT(AUTO) 3.09 MIL/uL (4.2-6.2); RED CELL DISTRIBUTION WIDTH 16.4 % (9.0-15.0); WHITE BLOOD COUNT (AUTO) 16.1 K/uL (4.8-10.8)
[2024-03-18 08:39] LABS: ALBUMIN 1.7 g/dL (3.4-4.8); CALCIUM 8.4 mg/dL (8.4-11.0); CREATININE 1.2 mg/dL (0.55-1.30); PHOSPHORUS 3.2 mg/dL (2.7-4.5); POTASSIUM 3.6 mmol/L (3.5-5.1); TOTAL BILIRUBIN 0.4 mg/dL (0.0-1.0); TOTAL PROTEIN, SERUM 5.4 g/dL (6.4-8.3)
[2024-03-18] MEDS ORDERED: ACETAMINOPHEN 325 MG TABLET PO PRN ×2 (13:15→13:45)
[2024-03-18 17:22] LABS: BILIRUBIN,URINE NEGATIVE (NEGATIVE); BLOOD, URINE 1+ (NEGATIVE); CLARITY/URINE CLEAR (CLEAR); COLOR,URINE YELLOW (YELLOW); GLUCOSE,URINE NEGATIVE (NEGATIVE); KETONES,URINE NEGATIVE (NEGATIVE); LEUKOCYTE ESTERASE ,URINE NEGATIVE (NEGATIVE); NITRITE, URINE NEGATIVE (NEGATIVE); PROTEIN URINE NEGATIVE (NEGATIVE); UROBILINOGEN,URINE 0.2 (0.2-1.0)
[2024-03-18 18:29] LABS: BACTERIA,URINE FEW /HPF (None Seen); MUCUS,URINE 1+ /LPF (None Seen); RBC,URINE 0-3 /HPF (0-3)
[2024-03-18] MEDS: [UNRECOGNIZED DRUG - OTHER] IV SCH (20:38)
[2024-03-18] MEDS: SODIUM CHLORIDE IV SCH (20:38)
[2024-03-18] MEDS: K PHOS IV SCH (20:38)
[2024-03-18] MEDS: TPN CENTRAL IV SCH (20:38)
[2024-03-18] MEDS: MAGNESIUM SULFATE IV SCH (20:38)
[2024-03-19] VITALS (10 sets, daily range): BP systolic 95–130; PULSE 90–125; RESP 18–20; TEMP 96.8–99.3; O2SAT 90–99
[2024-03-19 08:16] LABS: HEMATOCRIT 25.2 % (36-48); HEMOGLOBIN 8.5 g/dL (12.0-16.0); MEAN CORPUSCULAR HGB CONC 34 % (32-36); PLATELET COUNT (AUTO) 95 K/uL (130-430); RED BLOOD CELL COUNT(AUTO) 2.21 MIL/uL (4.2-6.2); WHITE BLOOD COUNT (AUTO) 11.1 K/uL (4.8-10.8)
[2024-03-19 08:35] LABS: ERYTHROCYTE SEDIMENTATION RATE 2 MM/HR (0-20)
[2024-03-19 08:52] LABS: MEAN CORPUSCULAR HEMOGLOBIN 30 pg (27-31); MEAN CORPUSCULAR VOLUME 92 fL (79.0-98.0)
[2024-03-19 08:55] LABS: RED CELL DISTRIBUTION WIDTH 16.4 % (9.0-15.0)
[2024-03-19 09:52] LABS: ANISOCYTOSIS 1+; BAND % (MANUAL) 16 % (0-6); BASOPHILS % (MANUAL) 0 % (0-2); EOSINOPHILS % (MANUAL) 2 % (0-7); LYMPHOCYTES % (MANUAL) 6 % (20-46); METAMYELOCYTES % 3 % (0-0); MONOCYTES % (MANUAL) 6 % (0-11); PLATELET ESTIMATE DECREASED (ADEQUATE)
[2024-03-19] MEDS: dilTIAZem HCL IVP 5 MG/ML VIAL IVP PRN (12:02)
[2024-03-19 12:07] LABS: ALBUMIN 1.3 g/dL (3.4-4.8); CALCIUM 7.3 mg/dL (8.4-11.0); CREATININE 1.05 mg/dL (0.55-1.30); PHOSPHORUS 6.3 mg/dL (2.7-4.5); TOTAL BILIRUBIN 0.4 mg/dL (0.0-1.0)
[2024-03-19 13:14] LABS: TOTAL PROTEIN, SERUM 4.5 g/dL (6.4-8.3)
[2024-03-19 13:29] LABS: POTASSIUM 5.9 mmol/L (3.5-5.1)
[2024-03-19] MEDS ORDERED: MVI IV SCH (13:45)
[2024-03-19] MEDS ORDERED: MAGNESIUM SULFATE IV SCH (13:45)
[2024-03-19] MEDS ORDERED: SODIUM CHLORIDE IV SCH (13:45)
[2024-03-19] MEDS ORDERED: TPN CENTRAL IV SCH (13:45)
[2024-03-19] MEDS ORDERED: [UNRECOGNIZED DRUG - OTHER] IV SCH (13:45)
[2024-03-19] MEDS: FUROSEMIDE 40 MG/4 ML VIAL IVP SCH (17:05)
[2024-03-19 17:32] LABS: ALBUMIN 1.5 g/dL (3.4-4.8); CALCIUM 8.2 mg/dL (8.4-11.0); CREATININE 0.93 mg/dL (0.55-1.30); POTASSIUM 3.3 mmol/L (3.5-5.1); TOTAL BILIRUBIN 0.3 mg/dL (0.0-1.0); TOTAL PROTEIN, SERUM 5.1 g/dL (6.4-8.3)
[2024-03-19] MEDS: DIGOXIN 0.5 MG/2 ML AMP IVP ONE (21:17)
[2024-03-19] MEDS: traMADol HCL HCL 50 MG TABLET (ULTRAM) PO PRN (22:43)
[2024-03-19] MEDS: MAGNESIUM SULFATE IV SCH (22:58)
[2024-03-19] MEDS: TPN CENTRAL IV SCH (22:58)
[2024-03-19] MEDS: [UNRECOGNIZED DRUG - OTHER] IV SCH (22:58)
[2024-03-19] MEDS: MVI IV SCH (22:58)
[2024-03-19] MEDS: SODIUM CHLORIDE IV SCH (22:58)
[2024-03-20] VITALS (12 sets, daily range): BP systolic 96–106; PULSE 76–125; RESP 16–18; TEMP 96.4–98.5; O2SAT 90–98
[2024-03-20] MEDS: metroNIDAZOLE 500 mg/NS 100 ML IV SCH (06:49)
[2024-03-20 07:50] LABS: BASOPHILS % (AUTO) 0.2 % (0.0-2.0); EOSINOPHILS % (AUTO) 0.4 % (0.0-4.0); HEMATOCRIT 23.3 % (36-48); HEMOGLOBIN 7.8 g/dL (12.0-16.0); LYMPHOCYTES # (AUTO) 1.1 K/uL (1.0-5.5); LYMPHOCYTES % (AUTO) 10.7 % (20.5-51.5); MEAN CORPUSCULAR HEMOGLOBIN 31 pg (27-31); MEAN CORPUSCULAR HGB CONC 34 % (32-36); MEAN CORPUSCULAR VOLUME 91 fL (79.0-98.0); MONOCYTES # (AUTO) 0.5 K/uL (0.0-1.0); MONOCYTES % (AUTO) 4.8 % (1.7-9.3); NEUTROPHILS # (AUTO) 8.8 K/uL (1.8-7.7); NEUTROPHILS % (AUTO) 83.9 % (40.0-70.0); PLATELET COUNT (AUTO) 120 K/uL (130-430); RED BLOOD CELL COUNT(AUTO) 2.55 MIL/uL (4.2-6.2); RED CELL DISTRIBUTION WIDTH 16.4 % (9.0-15.0); WHITE BLOOD COUNT (AUTO) 10.5 K/uL (4.8-10.8)
[2024-03-20 08:06] LABS: ALBUMIN 1.5 g/dL (3.4-4.8); CALCIUM 7.8 mg/dL (8.4-11.0); CREATININE 0.81 mg/dL (0.55-1.30); TOTAL BILIRUBIN 0.3 mg/dL (0.0-1.0); TOTAL PROTEIN, SERUM 4.9 g/dL (6.4-8.3)
[2024-03-20 08:55] LABS: ERYTHROCYTE SEDIMENTATION RATE 30 MM/HR (0-20)
[2024-03-20 09:05] LABS: POTASSIUM 2.9 mmol/L (3.5-5.1)
[2024-03-20 09:10] LABS: PHOSPHORUS 2.7 mg/dL (2.7-4.5)
[2024-03-20] MEDS: POTASSIUM CHLORIDE 20 MEQ TABLET.ER PO ONE (11:48)
[2024-03-21] VITALS (12 sets, daily range): BP systolic 95–112; PULSE 70–97; RESP 16–22; TEMP 97.4–98.1; O2SAT 90–98
[2024-03-21] MEDS: traMADol HCL HCL 50 MG TABLET (ULTRAM) PO PRN (04:11)
[2024-03-21 08:07] LABS: BASOPHILS % (AUTO) 0.3 % (0.0-2.0); EOSINOPHILS # (AUTO) 0.1 K/uL (0.0-0.4); EOSINOPHILS % (AUTO) 0.6 % (0.0-4.0); HEMATOCRIT 22.9 % (36-48); HEMOGLOBIN 7.4 g/dL (12.0-16.0); LYMPHOCYTES # (AUTO) 1.7 K/uL (1.0-5.5); LYMPHOCYTES % (AUTO) 14.6 % (20.5-51.5); MEAN CORPUSCULAR HEMOGLOBIN 30 pg (27-31); MEAN CORPUSCULAR HGB CONC 33 % (32-36); MEAN CORPUSCULAR VOLUME 91 fL (79.0-98.0); MONOCYTES # (AUTO) 0.8 K/uL (0.0-1.0); MONOCYTES % (AUTO) 6.6 % (1.7-9.3); NEUTROPHILS # (AUTO) 9.3 K/uL (1.8-7.7); NEUTROPHILS % (AUTO) 77.9 % (40.0-70.0); PLATELET COUNT (AUTO) 147 K/uL (130-430); RED BLOOD CELL COUNT(AUTO) 2.52 MIL/uL (4.2-6.2); RED CELL DISTRIBUTION WIDTH 16.5 % (9.0-15.0); WHITE BLOOD COUNT (AUTO) 11.9 K/uL (4.8-10.8)
[2024-03-21 08:29] LABS: ERYTHROCYTE SEDIMENTATION RATE 35 MM/HR (0-20)
[2024-03-21 08:45] LABS: ALBUMIN 1.5 g/dL (3.4-4.8); CALCIUM 8.1 mg/dL (8.4-11.0); CREATININE 0.81 mg/dL (0.55-1.30); PHOSPHORUS 2.8 mg/dL (2.7-4.5); POTASSIUM 3.2 mmol/L (3.5-5.1); TOTAL BILIRUBIN 0.3 mg/dL (0.0-1.0); TOTAL PROTEIN, SERUM 4.8 g/dL (6.4-8.3)
[2024-03-21 17:56] LABS: BILIRUBIN,URINE NEGATIVE (NEGATIVE); BLOOD, URINE 2+ (NEGATIVE); CLARITY/URINE CLEAR (CLEAR); COLOR,URINE YELLOW (YELLOW); GLUCOSE,URINE NEGATIVE (NEGATIVE); KETONES,URINE NEGATIVE (NEGATIVE); LEUKOCYTE ESTERASE ,URINE NEGATIVE (NEGATIVE); NITRITE, URINE NEGATIVE (NEGATIVE); PROTEIN URINE 1+ (NEGATIVE); UROBILINOGEN,URINE 0.2 (0.2-1.0)
[2024-03-21 19:14] LABS: BACTERIA,URINE FEW /HPF (None Seen); WBC,URINE 0-3 /HPF (0-3)
[2024-03-21 19:15] LABS: FINE GRANULAR CASTS,URINE 0-10 /LPF (None Seen); MUCUS,URINE None Seen /LPF (None Seen)
[2024-03-21] MEDS: KCL 40 mEq in 100 mL (PREMIX) 100 ML IV PRN (20:46)
[2024-03-22] VITALS (10 sets, daily range): BP systolic 80–132; PULSE 18–101; RESP 16–20; TEMP 96.9–100.4; O2SAT 91–96
[2024-03-22 08:29] LABS: CALCIUM 8.2 mg/dL (8.4-11.0); CREATININE 0.9 mg/dL (0.55-1.30); POTASSIUM 3.4 mmol/L (3.5-5.1)
[2024-03-22 08:48] LABS: BASOPHILS % (AUTO) 0.3 % (0.0-2.0); EOSINOPHILS % (AUTO) 0.3 % (0.0-4.0); HEMATOCRIT 24.1 % (36-48); LYMPHOCYTES # (AUTO) 1.9 K/uL (1.0-5.5); LYMPHOCYTES % (AUTO) 14.6 % (20.5-51.5); MEAN CORPUSCULAR HEMOGLOBIN 30 pg (27-31); MEAN CORPUSCULAR HGB CONC 33 % (32-36); MEAN CORPUSCULAR VOLUME 91 fL (79.0-98.0); MONOCYTES # (AUTO) 0.8 K/uL (0.0-1.0); MONOCYTES % (AUTO) 6.1 % (1.7-9.3); NEUTROPHILS # (AUTO) 10.2 K/uL (1.8-7.7); NEUTROPHILS % (AUTO) 78.7 % (40.0-70.0); PLATELET COUNT (AUTO) 202 K/uL (130-430); RED BLOOD CELL COUNT(AUTO) 2.65 MIL/uL (4.2-6.2); RED CELL DISTRIBUTION WIDTH 16.7 % (9.0-15.0)
[2024-03-22 09:24] LABS: ERYTHROCYTE SEDIMENTATION RATE 46 MM/HR (0-20)
[2024-03-22] MEDS ORDERED: TRAM50TA2 PO (10:13)
[2024-03-22] MEDS ORDERED: NEU300 PO (10:13)
[2024-03-22] MEDS ORDERED: PRED20TA PO (10:13)
[2024-03-22] MEDS ORDERED: PRED10TA PO (10:13)
[2024-03-22] MEDS ORDERED: FURO-149 PO (10:13)
[2024-03-22] MEDS ORDERED: PRED5TAB PO (10:13)
[2024-03-23] VITALS (9 sets, daily range): BP systolic 97–114; PULSE 81–104; RESP 16–18; TEMP 96.7–98.2; O2SAT 93–99
[2024-03-23 08:16] LABS: BASOPHILS % (AUTO) 0.3 % (0.0-2.0); EOSINOPHILS % (AUTO) 0.2 % (0.0-4.0); HEMATOCRIT 22.8 % (36-48); HEMOGLOBIN 7.3 g/dL (12.0-16.0); LYMPHOCYTES # (AUTO) 1.7 K/uL (1.0-5.5); LYMPHOCYTES % (AUTO) 13.6 % (20.5-51.5); MEAN CORPUSCULAR HEMOGLOBIN 29 pg (27-31); MEAN CORPUSCULAR HGB CONC 32 % (32-36); MEAN CORPUSCULAR VOLUME 92 fL (79.0-98.0); MONOCYTES # (AUTO) 0.7 K/uL (0.0-1.0); MONOCYTES % (AUTO) 5.7 % (1.7-9.3); NEUTROPHILS # (AUTO) 9.7 K/uL (1.8-7.7); NEUTROPHILS % (AUTO) 80.2 % (40.0-70.0); PLATELET COUNT (AUTO) 246 K/uL (130-430); RED BLOOD CELL COUNT(AUTO) 2.49 MIL/uL (4.2-6.2); RED CELL DISTRIBUTION WIDTH 16.8 % (9.0-15.0); WHITE BLOOD COUNT (AUTO) 12.1 K/uL (4.8-10.8)
[2024-03-23 08:19] LABS: ALBUMIN 1.6 g/dL (3.4-4.8); CALCIUM 8.1 mg/dL (8.4-11.0); CREATININE 0.74 mg/dL (0.55-1.30); POTASSIUM 3.6 mmol/L (3.5-5.1); TOTAL BILIRUBIN 0.2 mg/dL (0.0-1.0)
[2024-03-23] MEDS ORDERED: POTASSIUM CHLORIDE 20 MEQ/PKT PACKET PO ONE (10:15)
[2024-03-23] MEDS: POTASSIUM CHLORIDE 20 MEQ TABLET.ER PO ONE (11:59)
[2024-03-23] MEDS ORDERED: POTASSIUM CHLORIDE 20 MEQ/PKT PACKET PO SCH (21:00)
[2024-03-24] MEDS ORDERED: HYDROCORTISONE SOD SUCC 100 MG/2 ML VIAL IVP SCH (09:00)
== END 2024-03-23 19:30 | disposition home or self-care (01) | DRG 853 ==
LOC: SED 23:22 → STU 02-26 01:49 → SMU 03-01 17:50 → STU 03-04 18:51 → SIC 03-13 17:57 → STU 03-15 19:20 → SMU 03-23 10:04
PROVIDERS: ADMIT Specialist; ATTEND Specialist
PROC: 02HV33Z Insertion of Infusion Device into Superior Vena Cava, Percutaneous Approach (ICD-10-PCS; 2024-02-26)
PROC: 0D1E0Z4 Bypass Large Intestine to Cutaneous, Open Approach (ICD-10-PCS; 2024-03-13)
PROC: 0DB80ZZ Excision of Small Intestine, Open Approach (ICD-10-PCS; 2024-03-13)
PROC: 0DBN0ZZ Excision of Sigmoid Colon, Open Approach (ICD-10-PCS; 2024-03-13)
PROC: 0DBU0ZZ Excision of Omentum, Open Approach (ICD-10-PCS; 2024-03-13)
PROC: 0WQF0ZZ Repair Abdominal Wall, Open Approach (ICD-10-PCS; 2024-03-13)
PROC: 0DNW0ZZ Release Peritoneum, Open Approach (ICD-10-PCS; 2024-03-13)
PROC: 30233N1 Transfusion of Nonautologous Red Blood Cells into Peripheral Vein, Percutaneous Approach (ICD-10-PCS; principal; 2024-03-13 13:16)
DX: A41.9 Sepsis, unspecified organism (principal); E43 Unspecified severe protein-calorie malnutrition; J96.00 Acute respiratory failure, unspecified whether with hypoxia or hypercapnia; K65.9 Peritonitis, unspecified; K57.20 Diverticulitis of large intestine with perforation and abscess without bleeding; E87.20 Acidosis, unspecified; D64.9 Anemia, unspecified; D69.6 Thrombocytopenia, unspecified; E83.52 Hypercalcemia; E83.51 Hypocalcemia; E83.39 Other disorders of phosphorus metabolism; E78.5 Hyperlipidemia, unspecified; K52.89 Other specified noninfective gastroenteritis and colitis; E66.01 Morbid (severe) obesity due to excess calories; J44.9 Chronic obstructive pulmonary disease, unspecified; I48.0 Paroxysmal atrial fibrillation; K21.9 Gastro-esophageal reflux disease without esophagitis; I10 Essential (primary) hypertension; F17.200 Nicotine dependence, unspecified, uncomplicated; E88.09 Other disorders of plasma-protein metabolism, not elsewhere classified; E87.6 Hypokalemia; Z79.01 Long term (current) use of anticoagulants; Z93.3 Colostomy status; Z90.710 Acquired absence of both cervix and uterus; Z90.49 Acquired absence of other specified parts of digestive tract; Z87.442 Personal history of urinary calculi; Z79.899 Other long term (current) drug therapy; Z88.5 Allergy status to narcotic agent; Z68.38 Body mass index [BMI] 38.0-38.9, adult; Z79.51 Long term (current) use of inhaled steroids; K29.70 Gastritis, unspecified, without bleeding; K66.0 Peritoneal adhesions (postprocedural) (postinfection); M19.90 Unspecified osteoarthritis, unspecified site
CPT/HCPCS: 36415; 71045; 74160; 76857; 80048; 80053; 80202; 81000; 81001; 81015; 82330; 82948; 83605; 83735; 84100; 84478; 85007; 85025; 85027; 85610; 85651; 85730; 86886; 86900; 86901; 86920; 87040; 87081; 87086; 87230; 88302; 88305; 88307; 93005; 93970; 94070; 94640; 94760; 97110-GP; 97116-GP; 97163-GP; 97530-GP; 99285; C1727; C9290; G0378; J0131; J0692; J1160; J1170; J1450; J1650; J1720; J1815; J1940; J2020; J2185; J2405; J2470; J2543; J2704; J2710; J2765; J3010; J3370; J3465; J3475; J3480; J3490; J7050; J7060; J7120; J7131; P9021; Q9967

== ENCOUNTER 2024-03-23 20:25 | Emergency (ER) | payer OTHER, MEDICAID ==
[~2024-03-23] VITALS: Ht 160 cm; Wt 95.7 kg
[~2024-03-23 20:25] MED LIST: ALBU2.5V7 INH; ATOR-449 PO; FURO-149 PO; LOSA-413 PO; NEU300 PO; OMEP20CA15 PO; ONDA-8 TL; POTA8TAB66 PO; PRED10TA PO; PRED20TA PO; PRED5TAB PO; ROFL500T PO; TRAM50TA2 PO
[2024-03-23 20:38] VITALS: BP_SYST 104; PULSE 80; RESP 18; TEMP 97.3; O2SAT 98
[2024-03-23] MEDS: HYDROcodone/ACETAMIN 10-325 MG TAB PO ONE (21:56)
[2024-03-23 23:53] VITALS: BP_SYST 97; PULSE 82; RESP 20; TEMP 97.3; O2SAT 97
== END 2024-03-23 23:53 | disposition home or self-care (01) ==
LOC: SED 20:25
DX: S81.812A Laceration without foreign body, left lower leg, initial encounter (principal); K21.9 Gastro-esophageal reflux disease without esophagitis; Z88.6 Allergy status to analgesic agent; W22.8XXA Striking against or struck by other objects, initial encounter; Y93.89 Activity, other specified; Y92.89 Other specified places as the place of occurrence of the external cause; Y99.8 Other external cause status
CPT/HCPCS: 99283